=== PATIENT | male | born 1985 | race Caucasian/White ===

== ENCOUNTER 2020-04-29 19:14 | Emergency (ER) | payer OTHER, SELFPAY ==
[2020-04-29 19:15] VITALS: BP 147/87; PULSE 83; RESP 16; TEMP 37.5; O2SAT 98; BMI 28.1
[2020-04-29] MEDS: cefTRIAXone sodium 250 MG, Lidocaine HCl 1 % MPF 0.9 ML IM (20:15)
[2020-04-29] MEDS: Azithromycin 500 MG TABLET 1000 MG PO (20:15)
--- NOTE | 2020-04-29 20:23 | PC.NURSE ---
urine obtained, pt medicated per order
--- NOTE | 2020-04-29 20:25 | ED.MALEGU ---
HPI - Male Genitourinary General Chief complaint: Urogenital-Male Stated complaint: STD TEST Time Seen by Provider: 04/29/20 19:43 Source: patient Mode of arrival: ambulatory Limitations: no limitations History of Present Illness HPI Narrative: States he had intercourse with another female who advised him that she was diagnosed with gonorrhea and he reports that he has symptoms of burning-like discomfort with urination since finding out. States he has had gonorrhea in the past and feels similar. No penile, testicular pain. No GI symptoms. Severity: mild Exacerbating factors: none Context: known STD exposure Associated symptoms: Reports dysuria Related Data Allergies Allergy/AdvReac Type Severity Reaction Status Date / Time No Known Allergies Allergy Unverified 02/05/20 17:06 Review of Systems Review of Systems: Constitutional: No Weight loss, No Fever, No Chills, No Night Sweats, No Fatigue, No Malaise ENT/Mouth: No Hearing loss, No Ear Pain, No Nasal Congestion, No Sinus Pain, No Hoarseness, No sore throat, No Rhinorrhea, No Swallowing Difficulty Eyes: No Eye Pain, No Swelling, No Redness, No Foreign Body, No Discharge, No Vision Changes Cardiovascular: No Chest Pain, No SOB, No Dyspnea on Exertion, No Orthopnea, No Edema, No Palpitations Respiratory: No Cough, No Sputum, No Wheezing, No Smoke Exposure, No Dyspnea Gastrointestinal: No Nausea, No Vomiting, No Diarrhea, No Constipation, No abdominal Pain Genitourinary:as noted in HPI , No Flank Pain, No Urinary Flow Changes, No Hesitancy Musculoskeletal: No joint pain, No Myalgias, No Joint Swelling Skin: No Skin Lesions, No rash Neuro: No Weakness, No Numbness, No Paresthesias, No Loss of Consciousness, No Dizziness, No Headache Psych: No Social Issues Heme/Lymph: No Bruising, No Bleeding,No Lymphadenopathy Endocrine: No Polyuria, No Polydipsia, No Temperature Intolerance Yes all other systems are reviewed and are negative [facility] Past Medical History Medical History (Updated 04/29/20 @ 20:26 by Dank Fowler NP) No known health problems Social History Social History Advance Directives: No Advance Directives Information Provided: Yes Physical Exam Vital Signs: Vital Signs: Last Vital Signs Temp 99.5 F 04/29/20 19:15 Pulse 83 04/29/20 19:15 Resp 16 04/29/20 19:15 BP 147/87 H 04/29/20 19:15 Pulse Ox 98 04/29/20 19:15 Body Mass Index 28.1 Reviewed Const: General: cooperative and healthy appearing; No acute distress or intoxicated appearing Nutritional Appearance: average body habitus Orientation/consciousness: patient oriented x3 Eyes: General: appearance normal, both eyes and all related structures Visual Jones: normal visual jones by confrontation Chest: Chest palpation & inspection: normal inspection of the chest Resp: Effort & Inspection: normal respiratory effort Cardio: Jugular venous distension: no JVD : General: Yes no CVA tenderness Back/Spine/Pelvis: Back: no CVA tenderness Skin: General skin exam: no rashes or lesions noted Neuro: General: patient oriented x3 Extrem: General: Yes normal to inspection Discharge Plan Discharge Clinical Impression: Encounter for assessment of STD exposure, Urethritis Patient Disposition: Home, Self-Care Instructions: Sexually Transmitted Diseases (ED) Additional Instructions: Please follow-up with the health center for full panel STD testing as reviewed Today you were evaluated for 2 common STDs (chlamydia/gonorrhea) and treated for this We have gone ahead and tested you this may take up to 3-4 days results will call with results only if positive Please avoid any further low sexual activity until your symptoms resolve and you have been cleared by the health center at [facility] Return if any concerns or worsening symptoms Thank you Referrals: Tabitha Reeves MD [Primary Care Provider] - 1 week
[2020-04-29 20:27] LABS: Glucose Urine UA NEG (NEG); Leukocyte Esterase Urine NEG (NEG); Nitrite Urine NEG (NEG); PH 5.5 (5.0-8.0); Specific Gravity - Urine >= 1.030 (1.005-1.025); Urine Blood NEG (NEG); Urine Ketones NEG (NEG); Urine Protein TRACE MG/DL (NEG-TRACE)
[2020-04-29 20:28] LABS: Appearance Urine CLEAR; Color Urine YELLOW
--- NOTE | 2020-04-29 20:44 | PC.NURSE ---
pt uncooperative, left without discharge paperwork, provider did speak with them about their discharge.
[2020-05-28 16:16] LABS: CT PCR NOT DETECTED (Not Detect.); NG PCR NOT DETECTED (Not Detect.)
== END 2020-04-29 20:44 | disposition home or self-care (01) ==
PROVIDERS: Nurse Practitioner Primary Care; Emergency Provider Internal Medicine; PCP Internal Medicine
DX: N34.2 Other urethritis (principal); Z20.2 Contact with and (suspected) exposure to infections with a predominantly sexual mode of transmission
CPT/HCPCS: 81003; 87491; 87591; 99283; J0696

== ENCOUNTER 2020-07-21 19:46 | Emergency (ER) | payer OTHER, SELFPAY | END 2020-07-21 21:07 | disposition left against medical advice (07) | PROVIDERS: Emergency Provider Emergency Medicine | DX: Z20.2 Contact with and (suspected) exposure to infections with a predominantly sexual mode of transmission (principal) ==